=== PATIENT | female | born 1980 | race Caucasian/White ===

== ENCOUNTER 2018-04-10 10:50 | Emergency (ER) | payer OTHER ==
[2018-04-10] MEDS ORDERED: NA CHLORIDE 0.9% 1,000 ML ONE ×2 (11:45→15:07)
[2018-04-10 11:57] LABS: Absolute Lymphocytes (CBC) 1.7 K/uL (0.7-4.9); Absolute Monocytes 0.6 K/uL (0.1-1.3); Absolute Neutrophil 6.1 K/uL (1.8-8.0); Basophils % 0.5 % (0-1.3); Eosinophils % 0.4 % (0-4.4); Hematocrit 43.2 % (36.0-45.0); Lymphocytes % 20.4 % (15.3-44.8); MPV 8.9 fL (7.6-11.3); Monocytes % 7.3 % (3.3-12.3); RBC Red Blood Cell Count 4.45 M/uL (3.86-4.86)
[2018-04-10 12:05] LABS: Urine Bacteria <20 /HPF (<20); Urine Culture Reflex Order NOT NEEDED; Urine RBC <5 /HPF (NONE SEEN)
[2018-04-10 12:39] LABS: BUN Blood Urea Nitrogen 11 mg/dL (7-18); Bicarbonate 28 mmol/L (21-32); Glucose Level 83 mg/dL (74-106); Potassium 3.9 mmol/L (3.5-5.1); Sodium Level 142 mmol/L (136-145)
[2018-04-10] MEDS ORDERED: MECLIZINE HCL 12.5 MG TAB ONE (15:07)
--- NOTE | 2018-04-10 15:44 | EDPHYS ---
Physician Documentation [facility] Name: Katrina Robertson Age: 37 yrs Sex: Female : 1980 Arrival Date: 04/10/2018 Time: 10:53 Bed 17 Private MD: ED Physician Derik Loving HPI: 04/10 12:22 This 37 yrs old Female presents to ER via Ambulatory with complaints of snw Nausea/Vomiting. 12:22 The patient presents to the emergency department with nausea, vomiting. Onset: The snw symptoms/episode began/occurred gradually, 2 day(s) ago, and became persistent. Possible causes: unknown. The symptoms are aggravated by position change. Associated signs and symptoms: Pertinent positives: nausea, vomiting. Severity of symptoms: At their worst the symptoms were moderate. It is unknown whether or not the patient has had similar symptoms in the past. The patient has not recently seen a physician. + hx of frequent headaches. This is similar. 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 - Social history:: Smoking status: Patient/guardian denies using tobacco. - Ebola Screening: : Patient denies exposure to infectious person Patient denies travel to an Ebola-affected area in the 21 days before illness onset. ROS: 12:20 Constitutional: Negative for fever, chills, and weight loss, Eyes: Negative for injury, snw pain, redness, and discharge, ENT: Negative for injury, pain, and discharge, Neck: Negative for injury, pain, and swelling, Cardiovascular: Negative for chest pain, palpitations, and edema, Respiratory: Negative for shortness of breath, cough, wheezing, and pleuritic chest pain, Back: Negative for injury and pain, : Negative for injury, bleeding, discharge, and swelling, MS/Extremity: Negative for injury and deformity, Skin: Negative for injury, rash, and discoloration. 12:20 Neuro: Positive for headache, light headed with position change. Exam: 12:20 Constitutional: This is a well developed, well nourished patient who is awake, alert, snw and in no acute distress. Head/Face: Normocephalic, atraumatic. Eyes: Pupils equal round and reactive to light, extra-ocular motions intact. Lids and lashes normal. Conjunctiva and sclera are non-icteric and not injected. Cornea within normal limits. Periorbital areas with no swelling, redness, or edema. ENT: Nares patent. No nasal discharge, no septal abnormalities noted. Tympanic membranes are normal and external auditory canals are clear. Oropharynx with no redness, swelling, or masses, exudates, or evidence of obstruction, uvula midline. Mucous membranes moist. Neck: Trachea midline, no thyromegaly or masses palpated, and no cervical lymphadenopathy. Supple, full range of motion without nuchal rigidity, or vertebral point tenderness. No Meningismus. Chest/axilla: Normal chest wall appearance and motion. Nontender with no deformity. No lesions are appreciated. Cardiovascular: Regular rate and rhythm with a normal S1 and S2. No gallops, murmurs, or rubs. Normal PMI, no JVD. No pulse deficits. Respiratory: Lungs have equal breath sounds bilaterally, clear to auscultation and percussion. No rales, rhonchi or wheezes noted. No increased work of breathing, no retractions or nasal flaring. Abdomen/GI: Soft, non-tender, with normal bowel sounds. No distension or tympany. No guarding or rebound. No evidence of tenderness throughout. Back: No spinal tenderness. No costovertebral tenderness. Full range of motion. MS/ Extremity: Pulses equal, no cyanosis. Neurovascular intact. Full, normal range of motion. Neuro: Awake and alert, GCS 15, oriented to person, place, time, and situation. Cranial nerves II-XII grossly intact. Motor strength 5/5 in all extremities. Sensory grossly intact. Cerebellar exam normal. Normal gait. Psych: Awake, alert, with orientation to person, place and time. Behavior, mood, and affect are within normal limits. 12:20 Skin: Appearance: Temperature: normal temperature, Moisture: dry. Vital Signs: 11:28 BP 117 / 83; Pulse 74; Resp 14; Temp 98.0(TE); Pulse Ox 100% on R/A; Weight 54.43 kg; ss Height 5 ft. 1 in. (154.94 cm); Pain 5/10; 12:04 BP 111 / 75; Pulse 70; Resp 16; Pulse Ox 100% ; sv 13:00 BP 112 / 75; Pulse 66; Resp 16; Pulse Ox 100% on R/A; dh3 14:00 BP 106 / 69; Pulse 75; Resp 16; Pulse Ox 100% ; hb 14:41 BP 104 / 71 Supine; mg2 14:41 BP 110 / 80 Sitting; mg2 14:41 BP 114 / 91 Standing; mg2 11:28 Body Mass Index 22.67 (54.43 kg, 154.94 cm) ss MDM: 11:16 Patient medically screened. zandra 15:44 Data reviewed: vital signs, nurses notes. Data interpreted: Pulse oximetry: on room air snw is 100 %. Interpretation: normal. Counseling: I had a detailed discussion with the patient and/or guardian regarding: the historical points, exam findings, and any diagnostic results supporting the discharge/admit diagnosis, the presence of at least one elevated blood pressure reading (>120/80) during this emergency department visit, lab results, the need for outpatient follow up, to return to the emergency department if symptoms worsen or persist or if there are any questions or concerns that arise at home. Response to treatment: the patient's symptoms have resolved after treatment, the patient's blood pressure is in an acceptable range, mental status has returned to baseline, the patient no longer shows bradycardia, the patient is not short of breath. Special discussion: I have referred the patient to see his PCP for further evaluation of high blood pressure. Based on the history and exam findings, there is no indication for further emergent testing or inpatient evaluation. I discussed with the patient/guardian the need to see the primary care provider for further evaluation of the symptoms. 04/10 11:28 Order name: Urine Culture [facility] 04/10 11:28 Order name: Urine Microscopic Only; Complete Time: 12:07 [facility] 04/10 11:28 Order name: Basic Metabolic Panel; Complete Time: 12:42 [facility] 04/10 11:28 Order name: CBC with Diff; Complete Time: 12:16 [facility] 04/10 11:52 Order name: Urine Dipstick--Ancillary (enter results) [facility] 04/10 11:52 Order name: Urine --Ancillary (enter results) [facility] 04/10 11:28 Order name: Urine Test (obtain specimen); Complete Time: 11:55 snw 04/10 11:28 Order name: Urine Dipstick-Ancillary (obtain specimen); Complete Time: 11:55 snw 04/10 11:28 Order name: IV Saline Lock; Complete Time: 11:55 snw 04/10 12:09 Order name: Labs - recollect needed; Complete Time: 12:19 ag 04/10 13:29 Order name: PO challenge; Complete Time: 14:27 snw 04/10 13:29 Order name: Orthostatics; Complete Time: 14:35 snw Administered Medications: 11:55 Drug: NS 0.9% 1000 ml Route: IV; Rate: 1 bolus; Site: right antecubital; sv 12:50 Follow up: Response: No adverse reaction; IV Status: Completed infusion hb 15:01 Drug: NS 0.9% 1000 ml Route: IV; Rate: 1 bolus; Site: right antecubital; mg2 16:04 Follow up: IV Status: Completed infusion; IV Intake: 1000ml ss 15:01 Drug: Meclizine 50 mg Route: PO; mg2 16:04 Follow up: Response: No adverse reaction; Marked relief of symptoms ss Disposition: 04/10/18 15:43 Discharged to Home. Impression: Volume depletion, Nausea and vomiting, Headache. - Condition is Stable. - Discharge Instructions: Dehydration, Adult, Nausea and Vomiting, Adult, Rehydration, Adult. - Prescriptions for promethazine 25 mg Oral Tablet - take 1 tablet by ORAL route every 6 hours As needed; 20 tablet. - Work release form, Medication Reconciliation Form, Thank You Letter, Antibiotic Education, Prescription Opioid Use form. - Follow up: Private Physician; When: 1 - 2 days; Reason: Recheck today's complaints, Continuance of care, Re-evaluation by your physician. Follow up: Emergency Department; When: As needed; Reason: Worsening of condition. Addendum: 04/17/2018 10:46 Co-signature as Attending Physician, Derik Loving MD I agree with the assessment and c bustamante plan of care. Signatures: Dispatcher [employer] Jacqueline Neri RN RN sv Anderson, Corey, MD MD cha Therrien, Shelly, POLE FRAME CONSTRUCTION WORKER-C POLE FRAME CONSTRUCTION WORKER-Cs[employer] Ashly Samuel RN RN Luanne Clay Michele, RN RN mg2 Jessica Varner RN Corrections: (The following items were deleted from the chart) 04/10 16:04 15:43 04/10/2018 15:43 Discharged to Home. Impression: Volume depletion; Nausea and ss vomiting; Headache. Condition is Stable. Discharge Instructions: Dehydration, Adult, Nausea and Vomiting, Adult, Rehydration, Adult. Prescriptions for promethazine 25 mg Oral Tablet - take 1 tablet by ORAL route every 6 hours As needed; 20 tablet. and Forms are Work release form, Medication Reconciliation Form, Thank You Letter, Antibiotic Education, Prescription Opioid Use. Follow up: Private Physician; When: 1 - 2 days; Reason: Recheck today's complaints, Continuance of care, Re-evaluation by your physician. Follow up: Emergency Department; When: As needed; Reason: Worsening of condition. snw
--- NOTE | 2018-04-10 15:44 | ER ---
Nurse's Notes [facility] Name: Katrina Robertson Age: 37 yrs Sex: Female : 1980 Arrival Date: 04/10/2018 Time: 10:53 Bed 17 Private MD: Diagnosis: Volume depletion;Nausea and vomiting;Headache Presentation: 04/10 11:27 Presenting complaint: Patient states: Intermittent headaches above brows that lead to ss dizziness, then nausea and vomiting. Pt denies abd pain. Symptoms began yesterday and reportedly come in waves. Transition of care: patient was not received from another setting of care. Onset of symptoms was April 09, 2018. Risk Assessment: Do you want to hurt yourself or someone else? Patient reports no desire to harm self or others. Initial Sepsis Screen: Does the patient meet any 2 criteria? No. Patient's initial sepsis screen is negative. Does the patient have a suspected source of infection? No. Patient's initial sepsis screen is negative. Care prior to arrival: None. 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 - Social history:: Smoking status: Patient/guardian denies using tobacco. - Ebola Screening: : Patient denies exposure to infectious person Patient denies travel to an Ebola-affected area in the 21 days before illness onset. Screenin:45 Abuse screen: Denies threats or abuse. Denies injuries from another. Nutritional sv screening: No deficits noted. Tuberculosis screening: No symptoms or risk factors identified. Fall Risk None identified. Assessment: 11:45 General: Appears in no apparent distress. uncomfortable, slender, Behavior is calm, sv cooperative, appropriate for age. Pain: Denies pain. Neuro: Level of Consciousness is awake, alert, obeys commands, Oriented to person, place, time, situation, Moves all extremities. Full function Speech is normal. Respiratory: Respiratory effort is even, unlabored, Respiratory pattern is regular, symmetrical. GI: Abdomen is flat, Reports nausea, vomiting, since 3 days. Derm: Skin is normal. 12:45 Reassessment: Patient appears in no apparent distress at this time. Patient and/or hb family updated on plan of care and expected duration. Pain level reassessed. Patient is alert, oriented x 3, equal unlabored respirations, skin warm/dry/pink. 13:26 Reassessment: Patient appears in no apparent distress at this time. No changes from hb previously documented assessment. Patient and/or family updated on plan of care and expected duration. Pain level reassessed. Patient is alert, oriented x 3, equal unlabored respirations, skin warm/dry/pink. 14:11 Reassessment: Patient appears in no apparent distress at this time. Patient and/or hb family updated on plan of care and expected duration. Pain level reassessed. Patient is alert, oriented x 3, equal unlabored respirations, skin warm/dry/pink. 15:44 Reassessment: Patient appears in no apparent distress at this time. Patient and/or ss family updated on plan of care and expected duration. Pain level reassessed. Patient is alert, oriented x 3, equal unlabored respirations, skin warm/dry/pink. Patient states feeling better. Patient states symptoms have improved. Vital Signs: 11:28 BP 117 / 83; Pulse 74; Resp 14; Temp 98.0(TE); Pulse Ox 100% on R/A; Weight 54.43 kg; ss Height 5 ft. 1 in. (154.94 cm); Pain 5/10; 12:04 BP 111 / 75; Pulse 70; Resp 16; Pulse Ox 100% ; sv 13:00 BP 112 / 75; Pulse 66; Resp 16; Pulse Ox 100% on R/A; dh3 14:00 BP 106 / 69; Pulse 75; Resp 16; Pulse Ox 100% ; hb 14:41 BP 104 / 71 Supine; mg2 14:41 BP 110 / 80 Sitting; mg2 14:41 BP 114 / 91 Standing; mg2 11:28 Body Mass Index 22.67 (54.43 kg, 154.94 cm) ED Course: 10:53 Patient arrived in ED. as 11:03 Mariana Galloway [facility]-C [facility]. snw 11:03 Derik Loving MD is Attending Physician. snw 11:28 Triage completed. ss 11:28 Arm band placed on right wrist. ss 11:34 Jacqueline Zhang, RN is Primary Nurse. sv 11:45 Patient has correct armband on for positive identification. Bed in low position. Pulse sv ox on. NIBP on. Door closed. Warm blanket given. Head of bed elevated. 11:45 Initial lab(s) drawn, by me, sent to lab. Inserted saline lock: 20 gauge in right sv antecubital area, using aseptic technique. Blood collected. Flushed right antecubital with 5 ml normal saline. 12:06 Awaiting lab results. sv 12:19 Lab(s) recollected, by me, sent to lab. 3 15:59 No provider procedures requiring assistance completed. IV discontinued, intact, ss bleeding controlled, No redness/swelling at site. Pressure dressing applied. Administered Medications: 11:55 Drug: NS 0.9% 1000 ml Route: IV; Rate: 1 bolus; Site: right antecubital; sv 12:50 Follow up: Response: No adverse reaction; IV Status: Completed infusion hb 15:01 Drug: NS 0.9% 1000 ml Route: IV; Rate: 1 bolus; Site: right antecubital; mg2 16:04 Follow up: IV Status: Completed infusion; IV Intake: 1000ml ss 15:01 Drug: Meclizine 50 mg Route: PO; mg2 16:04 Follow up: Response: No adverse reaction; Marked relief of symptoms ss Intake: 16:04 IV: 1000ml; Total: 1000ml. ss Outcome: 15:43 Discharge ordered by MD. snw 15:59 Discharged to home ambulatory, with significant other. ss 15:59 Condition: good 15:59 Instructed on discharge instructions, follow up and referral plans. medication usage, Demonstrated understanding of instructions, follow-up care, medications. 16:04 Patient left the ED. Signatures: Jacqueline Zhang, RN RN Mariana Galloway, SUPERVISOR ASSEMBLING-[employer]-Lily Crouch Shelby, RN RN Jessica Varner RN RN Karla Conroy 3 Aki Chowdhury RN RN mg2 Corrections: (The following items were deleted from the chart) 14:41 14:25 BP 121 / 75 Supine; Pulse 88bpm; hb hb 14:41 14:30 BP 115 / 75 Sitting; Pulse 100bpm; hb hb 14:41 14:36 BP 107 / 79 Standing; Pulse 109bpm; hb hb
[2018-04-10 21:03] LABS: Urine Blood TRACE (NEG); Urine Glucose NEGATIVE (NEG); Urine Protein NEGATIVE (NEG); Urine Specific Gravity 1.015 (1.005-1.030)
== END 2018-04-10 16:04 | disposition home or self-care (01) ==
LOC: ER 10:50
DX: E86.9 Volume depletion, unspecified (principal); R11.2 Nausea with vomiting, unspecified; R51 Headache
CPT/HCPCS: 36415; 80048; 81003; 81015; 81025; 85025; 87086; 87088; 96360; 96361; 99284; J7030